=== PATIENT | female | born 1980 | race Two or more races ===

== ENCOUNTER 2025-01-31 18:33 | Emergency (ER) | payer MEDICAID, SELFPAY ==
[2025-01-31 19:17] VITALS: BP 145/84; PULSE 86; RESP 18; TEMP 36.8; O2SAT 96; BMI 40.8
[2025-01-31] MEDS: ACYCLOVIR 800 MG TABLET PO (19:58)
--- NOTE | 2025-01-31 20:10 | EDNOTE_ITS ---
<Statement entered by Eve George MD - 02/03/25 18:57> As co-signing physician, I was present and available for consult prn. I concur with the plan and care as documented by the midlevel provider. ED Ear RME/HPI General Chief complaint: Ear Stated complaint: Right side of face numb, ear pain right Time Seen by Provider: 01/31/25 19:30 Arrival date/time: 01/31/25 18:33 44F with no significant PMH presents to ED with 1 day of R-sided facial pain that starts around ear area, as well as facial numbness and droop. Patient denies dizziness, vision changes, N/V, and AMS. Limitations: no limitations Related Data Previous Rx's ?Medication ?Instructions ?Recorded acyclovir 400 mg tablet 400 mg PO Q5H 10 days #48 ta bs 01/31/25 prednisone 20 mg tablet 80 mg (4 x 20 mg) PO QDAY 7 days 01/31/25 #28 tabs Allergies Allergy/AdvReac Type Severity Reaction Status Date / Time NKA Allergy Unknown Uncoded 01/31/25 18:37 Review of Systems Review of Systems Systems Reviewed: All systems reviewed, normal except as documented Constitutional Constitutional: Reports system reviewed and no additional complaints, except as documented, Denies fever(s) and Denies headache(s) ENT Ears, Nose, Mouth, and Throat: Reports as per HPI, Denies disequilibrium, Reports otalgia and Denies headache(s) Cardiovascular Cardiovascular: Reports system reviewed and no additional complaints, except as documented, Denies chest pain and Denies dyspnea Respiratory Respiratory: Reports system reviewed and no additional complaints, except as documented, Denies cough and Denies dyspnea Gastrointestinal Gastrointestinal: Reports system reviewed and no additional complaints, except as documented, Denies abdominal pain, Denies nausea and Denies vomiting Musculoskeletal Musculoskeletal: Reports numbness Neurologic Neurologic: Reports system reviewed and no additional complaints, except as documented, Reports as per HPI, Denies confusion, Denies disequilibrium, Denies headache(s) and Reports numbness Psychiatric Psychiatric: Denies confusion Past Medical History Past Medical History CARDIAC: Negative Congestive Heart Failure RESPIRATORY: Negative Chronic Obstructive Pulmonary Disease (COPD) GENITOURINARY: Negative Renal Disease ENDOCRINE: Negative Diabetes Mellitus Type 1 or Diabetes Mellitus Type 2 Social History SMOKING STATUS: Never smoker ED Exam General Limitations: Present no limitations General appearance: Present alert and in no apparent distress Head Head exam: Present atraumatic Eye Eye exam: Present normal appearance, PERRL and EOMI ENT ENT exam: Present normal oropharynx, mucous membranes moist and other (R facial droop) Neck Neck exam: Present normal inspection, full ROM and trachea midline Chest Chest inspection: Present normal inspection and symmetric chest wall rise Respiratory Respiratory exam: Present normal lung sounds bilaterally Cardiovascular Cardiovascular exam: Present regular rate, normal rhythm and normal heart sounds Abdominal Exam Abdominal exam: Present soft and normal bowel sounds Extremities Exam Extremities exam: Present normal inspection and full ROM Back Exam Back exam: Present normal inspection and full ROM Neurological Exam Neurological exam: Present alert, oriented X3 and CN II-XII intact Psychiatric Psychiatric exam: Present normal affect and normal mood Skin Skin exam: Present warm, dry, intact and normal color Course Quality Measures none Orders Category Date Time Status Acyclovir [Zovirax] Med 01/31/25 19:31 Discontinued 800 mg PO X1 ONE predniSONE Med 01/31/25 19:31 Discontinued 80 mg PO X1 ONE Vital Signs Vital signs: Vital Signs Temperature 98.3 F 01/31/25 19:17 Pulse Rate 86 01/31/25 19:17 Respiratory Rate 18 01/31/25 19:17 Blood Pressure 145/84 H 01/31/25 19:17 Pulse Oximetry (%) 96 01/31/25 19:17 Oxygen Delivery Method Room Air 01/31/25 19:17 O2 at 96% on RA and WNLs Ear MDM Narrative MDM Narrative:: 44F with no significant PMH presents to ED with 1 day of R-sided facial pain that starts around ear area, as well as facial numbness and droop. Patient denies dizziness, vision changes, N/V, and AMS. Physical exam reveals normal ear exam. R sided facial droop including unable to fully close eyelids and forehead involvement. Normal pupil response and EOM. Speech normal. Gait normal. No rash. Patient is afebrile, calm, and alert. 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 Meds and eap counselor given. Patient data External records reviewed:: [facility] previous records Clinical information provided by:: patient Social determinants that could affect healthcare access:: none Patient has the following chronic illnesses:: none How is presenting disease/condition affected by chronic disease/condition?: no chronic disease Evaluation data The following diagnostics were reviewed and interpreted by me:: other (specify) (none) Lab and/or radiology exams considered but not ordered:: not ordered Interpretation Summary: n/a Medications / Prescriptions Medications or Prescriptions considered but not ordered:: ordered Medication administrations:: Medication Administration History Discontinued Medications Acyclovir (Acyclovir 800 Mg Tablet) 800 mg PO X1 ONE Stop: 01/31/25 19:32 Last Admin: 01/31/25 19:58 Dose: 800 mg Documented By: CHRISTIANA Prednisone (Prednisone 20 Mg Tablet) 80 mg PO X1 ONE Stop: 01/31/25 19:32 Last Admin: 01/31/25 19:58 Dose: 80 mg Documented By: CHRISTIANA above Consultations Consultation(s) initiated? (list below): No Diagnosis Ear Differential Diagnosis: otitis externa, otitis media, foreign body in ear, ruptured TM, cerumen impaction and other (Corral's Palsy, CVA/TIA) Most likely diagnosis given after review of the tests above:: Corral's Palsy Admission Indicated Admission indicated?: not indicated Admission Request Was there a request for admission?: No Disposition Plan Disposition Plan: Discharge Discharge Attestation Discharge Attestation: The patient and all family members were given an opportunity to ask questions and understood the discharge instructions. Discharge instructions specifically effects, indications for sooner follow up or return to the emergency department, and the expected course of current diagnosis. Patient condition: Stable Discharge Plan Plan Patient Disposition: HOME (Self Care) Discharge Disposition comment: Stable Prescriptions/Referrals Prescriptions/Med Rec: New acyclovir 400 mg tablet 400 mg PO Q5H 10 Days Qty: 48 0RF Rx Instructions: 5 doses per 24 hours prednisone 20 mg tablet 80 mg PO QDAY 7 Days Qty: 28 0RF Problem List Clinical Impression: Corral's palsy Patient/Caregiver Discharge Instructions Education Materials: ED Corral's Palsy Additional Instructions: Please follow-up with PCP within 24-48 hours and return immediately if symptoms worsen. Print Language: Citizen Of [place] Stand Alone Forms: Patient Portal Info Letter PRANAV/DORITA Supervising Physician PRANAV/DORITA Supervising Physician: Dr. George
== END 2025-01-31 20:07 | disposition home or self-care (01) ==
LOC: SERX 20:15
PROVIDERS: Emergency Provider Emergency Medicine
DX: G51.0 Bell's palsy (principal)
CPT/HCPCS: 99283; J7512; A9270